=== PATIENT | male | born 2000 | race Caucasian/White ===

== ENCOUNTER 2022-06-19 05:30 | Emergency (ER) | payer OTHER, BC ==
[2022-06-19] MEDS ORDERED: Ketorolac 30 MG/ML SDV IM STA (05:33)
== END 2022-06-19 05:54 | disposition home or self-care (01) ==
LOC: MW.ED 05:30
DX: S40.021A Contusion of right upper arm, initial encounter (principal); Z91.030 Bee allergy status; V47.9XXA Unspecified car occupant injured in collision with fixed or stationary object in traffic accident, initial encounter; Y92.410 Unspecified street and highway as the place of occurrence of the external cause
CPT/HCPCS: 99284